=== PATIENT | male | born 1980 | race Caucasian/White ===

== ENCOUNTER 2018-08-15 17:37 | Emergency (ER) | payer MEDICAID ==
[~2018-08-15] VITALS: Ht 182.9 cm; Wt 122.0 kg
[2018-08-15] MEDS ORDERED: SODIUM CHLORIDE 0.9% 1,000 ML IV ONE ×2 (18:00→20:15)
[2018-08-15 18:07] LABS: BASOPHILS % (AUTO) 0.5 % (0.0-2.0); EOSINOPHILS % (AUTO) 2.9 % (1.0-6.0); HEMATOCRIT 41.9 % (41-53); HEMOGLOBIN 13.9 g/dL (13.5-17.5); LYMPHOCYTES % (AUTO) 42.7 % (22.0-44.0); MEAN CORPUSCULAR HEMOGLOBIN 29.5 pg (26.0-34.0); MEAN CORPUSCULAR HGB CONC 33.3 G/dL (31.0-37.0); MEAN CORPUSCULAR VOLUME 89 fL (80-100); MONOCYTES # (AUTO) 0.3 K/uL (0.1-1.0); MONOCYTES % (AUTO) 7.1 % (2.0-9.0); NEUTROPHILS # (AUTO) 2.2 K/uL (1.8-7.7); NEUTROPHILS % (AUTO) 46.8 % (40.0-70.0); PLATELET COUNT (AUTO) 146 K/uL (150-450); RED BLOOD CELL COUNT(AUTO) 4.72 MIL/uL (4.50-5.90); RED CELL DISTRIBUTION WIDTH 12.8 % (11.5-14.5)
[2018-08-15 18:44] LABS: SALICYLATE < 2.8 mg/dL (2.8-20.0)
[2018-08-15 19:01] LABS: ANION GAP 8 mmol/L (8-16); CALCIUM, TOTAL 8.8 mg/dL (8.8-10.5); CARBON DIOXIDE 30 mmol/L (22-29); CHLORIDE 105 mmol/L (98-107); CREATININE 1.07 mg/dL (0.60-1.30); GLOMERULAR FILTR. RATE CALC > 60 mL/min (>60); GLUCOSE,RANDOM 89 mg/dL (70-110); POTASSIUM 3.9 mmol/L (3.5-5.1); SODIUM SERUM 143 mmol/L (136-145); UREA NITROGEN, BLOOD 13 mg/dL (7-18)
[2018-08-15 19:07] LABS: ALANINE AMINOTRANSFERASE 25 U/L (12-78); ALBUMIN 3.9 g/dL (3.4-5.0); ALKALINE PHOSPHATASE 69 U/L (46-116); ASPARTATE AMINOTRANSFERASE 21 U/L (15-37); BILIRUBIN,TOTAL 0.5 mg/dL (0.1-1.0); TOTAL PROTEIN, SERUM 7.4 g/dL (6.4-8.2)
[2018-08-15 19:51] LABS: ACETAMINOPHEN < 2 mcg/mL (10-30)
[2018-08-15 23:26] LABS: AMPHET/METH SCREEN,URINE POSITIVE (NEGATIVE); BARBITURATE SCREEN, URINE NEGATIVE (NEGATIVE); BENZODIAZEPINES SCREEN,URINE NEGATIVE (NEGATIVE); CANNABINOID SCREEN,URINE POSITIVE (NEGATIVE); COCAINE SCREEN,URINE NEGATIVE (NEGATIVE); METHADONE SCREEN, URINE NEGATIVE (NEGATIVE); OPIATE SCREEN,URINE NEGATIVE (NEGATIVE)
[2018-08-15 23:31] LABS: PHENCYCLIDINE SCREEN,URINE NEGATIVE (NEGATIVE)
[2018-08-15 23:48] VITALS: BP 105/66
== END 2018-08-16 00:22 | disposition home or self-care (01) ==
LOC: EMS 17:40
DX: T40.1X1A Poisoning by heroin, accidental (unintentional), initial encounter (principal); F11.90 Opioid use, unspecified, uncomplicated; Z88.0 Allergy status to penicillin; Y92.89 Other specified places as the place of occurrence of the external cause
CPT/HCPCS: 36415; 80053; 80307; 85025; 93005; 99285; G0480 ×2; G0481; J7030

== ENCOUNTER 2018-09-30 07:08 | Emergency (ER) | payer MEDICAID ==
[~2018-09-30] VITALS: Ht 188 cm; Wt 122.0 kg
[2018-09-30] MEDS ORDERED: CARB100 PO (07:29)
[2018-09-30] MEDS ORDERED: LEVE250T55 PO (07:29)
[2018-09-30] MEDS ORDERED: IBUPROFEN 600 MG TABLET PO ONE (07:45)
[2018-09-30 08:25] VITALS: BP 128/78
== END 2018-09-30 08:40 | disposition home or self-care (01) ==
LOC: EMS 07:11
DX: S80.11XA Contusion of right lower leg, initial encounter (principal); J45.909 Unspecified asthma, uncomplicated; F17.210 Nicotine dependence, cigarettes, uncomplicated; F12.90 Cannabis use, unspecified, uncomplicated; F14.90 Cocaine use, unspecified, uncomplicated; Z88.0 Allergy status to penicillin; V49.9XXA Car occupant (driver) (passenger) injured in unspecified traffic accident, initial encounter; Y93.89 Activity, other specified; Y92.89 Other specified places as the place of occurrence of the external cause; Y99.8 Other external cause status

== ENCOUNTER 2024-12-23 14:31 | Emergency (ER) | payer MEDICAID, OTHER ==
[~2024-12-23] VITALS: Ht 188 cm; Wt 127.3 kg
[~2024-12-23 14:31] MED LIST: CARB100T12 PO; LEVE250T81 PO
[2024-12-23 14:36] VITALS: BP 103/69; PULSE 76; RESP 16; TEMP 97.4; O2SAT 97
[2024-12-23] MEDS: HYDROCODONE/ACETAMINOPHEN 5-325 MG TABLET PO ONE (16:01)
[2024-12-23] MEDS: IBUPROFEN 400 MG TABLET PO ONE (16:01)
== END 2024-12-23 18:19 ==
LOC: EMS 14:31
DX: S62.111A Displaced fracture of triquetrum [cuneiform] bone, right wrist, initial encounter for closed fracture (principal); G40.909 Epilepsy, unspecified, not intractable, without status epilepticus; J45.909 Unspecified asthma, uncomplicated; F12.90 Cannabis use, unspecified, uncomplicated; F17.210 Nicotine dependence, cigarettes, uncomplicated; F14.90 Cocaine use, unspecified, uncomplicated; Z79.899 Other long term (current) drug therapy; Z88.0 Allergy status to penicillin; Y04.0XXA Assault by unarmed brawl or fight, initial encounter; Y93.89 Activity, other specified; Y92.89 Other specified places as the place of occurrence of the external cause; Y99.9 Unspecified external cause status
CPT/HCPCS: 99284; 73110-TC; 73130-TC; Z7502; Z7610